=== PATIENT | female | born 1950 | race Caucasian/White ===

== ENCOUNTER → 2016-12-19 | Outpatient (CLI) | payer OTHER | END | disposition home or self-care (01) | LOC: LAB.O 08:20 | PROVIDERS: ATTEND Family Medicine | DX: Z79.899 Other long term (current) drug therapy (principal); M25.50 Pain in unspecified joint; E78.00 Pure hypercholesterolemia, unspecified; M05.9 Rheumatoid arthritis with rheumatoid factor, unspecified ==

== ENCOUNTER → 2017-04-30 | Outpatient (CLI) | payer OTHER | END | disposition home or self-care (01) | LOC: GMAL 11:16 | PROVIDERS: ATTEND Family Medicine | DX: M06.9 Rheumatoid arthritis, unspecified (principal) ==

== ENCOUNTER → 2017-06-08 | Outpatient (CLI) | payer OTHER | LOC: GMAL 10:31 | PROVIDERS: ATTEND Family Medicine | DX: D51.3 Other dietary vitamin B12 deficiency anemia (principal) ==

== ENCOUNTER → 2017-08-06 | Outpatient (CLI) | payer OTHER | LOC: GMAL 14:28 | PROVIDERS: ATTEND Family Medicine | DX: E03.8 Other specified hypothyroidism (principal); R94.5 Abnormal results of liver function studies ==

== ENCOUNTER → 2017-08-10 | Outpatient (CLI) | payer OTHER ==
--- NOTE | 2017-08-13 07:27 | US ---
EXAM DESCRIPTION: Thyroid CLINICAL HISTORY: 67 years Female, THYROID NODULE COMPARISON: None. FINDINGS: The right thyroid lobe measures 4.2 x 2.0 x 1.3 cm. It contains a 1.6 cm predominantly solid isoechoic nodule in its mid region with a central cystic component. There is a thin hypoechoic halo associated with this nodule without internal calcification or peripheral hypervascularity. There is a second 1 cm solid isoechoic nodule in the mid/superior pole right thyroid lobe without hypoechoic halo, internal calcification or peripheral hypervascularity. The thyroid isthmus is not thickened, measuring 2 mm AP diameter. The left thyroid lobe measures 4.1 x 1.3 x 1.3 cm. It contains a 1.3 cm solid, slightly hypoechoic nodule in its inferior pole without hypoechoic halo. This nodule contains a few small microcalcifications without peripheral hypervascularity. There is a second 5 mm solid nodule mid/superior pole left thyroid lobe without internal calcification, hypoechoic halo or peripheral hypervascularity. IMPRESSION: Bilateral solid and solid/cystic thyroid nodules as detailed above. Based on ACR TIRADS scoring and size, the 1.3 cm nodule in the inferior pole of the left thyroid lobe is suspicious and ultrasound-guided biopsy of this nodule should be considered. Annual follow-up ultrasound for up to 5 years is also recommended to document continued stability. Electronically signed by: Theo Priest MD 08/13/2017 7:26 AM RELIEF DRILLER
== END ==
LOC: US 08:01
PROVIDERS: ATTEND Family Medicine
DX: E04.1 Nontoxic single thyroid nodule (principal)

== ENCOUNTER → 2017-09-03 | Outpatient (CLI) | payer OTHER | LOC: GMAL 14:52 | PROVIDERS: ATTEND Family Medicine | DX: E03.8 Other specified hypothyroidism (principal) ==

== ENCOUNTER → 2018-01-07 | Outpatient (CLI) | payer OTHER | LOC: GMAL 12:13 | PROVIDERS: ATTEND Family Medicine | DX: M06.9 Rheumatoid arthritis, unspecified (principal) ==

== ENCOUNTER → 2018-01-28 | Outpatient (CLI) | payer OTHER | LOC: GMAL 11:07 | PROVIDERS: ATTEND Family Medicine | DX: E03.8 Other specified hypothyroidism (principal); E55.9 Vitamin D deficiency, unspecified ==

== ENCOUNTER → 2018-04-04 | Outpatient (CLI) | payer OTHER ==
--- NOTE | 2018-04-05 11:54 | US ---
US THYROID CLINICAL STATEMENT: NONTOXIC SINGLE THYROID NODULE. No palpable mass. Prior thyroid biopsy. COMPARISON: Ultrasound thyroid 08/10/2017. FINDINGS: Size right thyroid lobe: 4.6 x 1.9 x 1.8 cm Size left thyroid lobe: 4.1 x 1.6 x 1.2 cm Size isthmus: 0.2 cm Estimated total number of nodules greater than or equal to 1 cm: 3 Nodule 1: Size: 1.8 x 1.3 x 0.1 cm. Slightly larger compared to the prior study. Location: Right Mid Composition: solid or almost completely solid: 2 points Echogenicity: hypoechoic: 2 points Shape: wider than tall: 0 points Margins: smooth: 0 points. Hypoechoic. Echogenic foci: None. ACR Total Points: 4; ACR TI-RADS risk category: TR4 - moderately suspicious nodule. Nodule 2: Size: 1.0 x 0.9 x 0.8 cm. Stable since the prior study. Location: Right Mid Composition: solid or almost completely solid: 2 points Echogenicity: hypoechoic: 2 points Shape: wider than tall: 0 points Margins: smooth: 0 points. Hypoechoic. Echogenic foci: none: 0 points ACR Total Points: 4; ACR TI-RADS risk category: TR4 - moderately suspicious nodule. Nodule 3: Size: 0.5 x 0.4 x 0.3 cm. Stable since the prior study. Location: Left Lower Composition: spongiform: 0 points Echogenicity: hypoechoic: 2 points Shape: wider than tall: 0 points Margins: smooth: 0 points Echogenic foci: none: 0 points ACR Total Points: 2; ACR TI-RADS risk category: TR2 - nonsuspicious nodule. Nodule 4: Size: 1.2 x 1.1 x 0.9 cm. Stable size since the prior study. Location: Left Lower Composition: solid or almost completely solid: 2 points Echogenicity: hypoechoic: 2 points Shape: wider than tall: 0 points Margins: smooth: 0 points. Echogenic. Echogenic foci: peripheral calcifications: 2 points ACR Total Points: 4; ACR TI-RADS risk category: TR4 - moderately suspicious nodule. The soft tissues around the thyroid gland show no evidence of distinct solid mass or cyst, large calcifications or parenchymal edema, or abnormal vascularity. Overlying skin was unremarkable. IMPRESSION: 1. Nodule 1: ACR TI-RADS 2017 Category 4. Slightly larger compared to the prior study July 2017. Recommend: Ultrasound-guided fine needle aspiration. Please refer to ACR TI-RADS 2017 recommendations below.* 2. Nodule 2: ACR TI-RADS 2017 Category 4. Stable size compared to the prior study. Recommend: Follow-up ultrasound in 1 year. 3. Nodule 3: ACR TI-RADS 2017 Category 2. Stable since prior study. Recommend: No further follow-up. 4. Nodule 4: ACR TI-RADS 2017 Category 4. Stable size compared to prior study. Recommend: Follow-up ultrasound in 1 year. Soft tissues around the thyroid gland are unremarkable. *ACR TI-RADS 2017 Recommendations: TR1: No FNA or follow up TR2: No FNA or follow up TR3: FNA if >/= 2.5 cm, follow up if 1.5 - 2.4 cm in 1, 3, and 5 years TR4: FNA if >/= 1.5 cm, follow up if 1.0 - 1.4 cm in 1, 2, 3, and 5 years TR5: FNA if >/= 1.0 cm, follow up if 0.5 - 0.9 cm every year for 5 years ACR TI-RADS recommends that no more than two nodules with the highest ACR TI-RADS total point should be biopsied and no more than four nodules should be followed. Electronically signed by: Charan Shaver MD 04/05/2018 11:52 AM CDT
== END ==
LOC: US 16:09
DX: E04.1 Nontoxic single thyroid nodule (principal)

== ENCOUNTER 2018-04-20 07:40 | Emergency (ER) | payer OTHER ==
[2018-04-20] MEDS ORDERED: ONDANSETRON INJ 4 MG/2 ML VIAL IV ONE (08:03)
[2018-04-20] MEDS ORDERED: fentaNYL CITRATE INJ 50 MCG/ML AMP IV ONE ×2 (08:03→08:22)
--- NOTE | 2018-04-20 08:23 | ED.PDOC ---
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 C/O PAIN AND DECREASED ROM TO L SHOULDER. DENIES OTHER INJURIES. Severity: moderate Improving Factors: immobilization Worsening Factors: movement Allergies/Adverse Reactions: Allergies NO KNOWN ALLERGY Allergy (Unverified 11/27/12 09:14) Home Medications: Ambulatory Orders Acetaminophen W/ Codeine [Tylenol W/ CODEINE #3] 1 ea PO Q6HR PRN #24 04/20/18 Metformin HCl 850 mg PO DAILY 04/20/18 Review of Systems - Review of Systems Constitutional: States: no symptoms reported EENTM: States: no symptoms reported Respiratory: Denies: short of breath, wheezing Cardiology: States: no symptoms reported. Denies: chest pain Gastrointestinal/Abdominal: Denies: nausea, vomiting Genitourinary: States: no symptoms reported Musculoskeletal: States: other - PAIN AND DEFORMITY L SHOULDER . Denies: back pain, neck pain Skin: States: no symptoms reported Neurological: Denies: numbness, paresthesia Endocrine: States: no symptoms reported Hematologic/Lymphatic: States: no symptoms reported Past Medical History (General) - Patient Medical History Hx Stroke: No Hx Congestive Heart Failure: No Hx Diabetes: Yes Hx MRSA: No - Vaccination History Hx Influenza Vaccination: Yes - 2016 Hx Pneumococcal Vaccination: Yes - Social History Hx Tobacco Use: No Hx Alcohol Use: No Family Medical History - Family History Mother Family History: No Known Living Status: Physical Exam - Physical Exam General Appearance: Alert, No apparent distress Eye Exam: bilateral normal Ears, Nose, Throat: normal ENT inspection Neck: non-tender, full range of motion, supple Respiratory: lungs clear, normal breath sounds Cardiovascular/Chest: normal peripheral pulses, regular rate, rhythm, no murmur Gastrointestinal/Abdominal: non tender, soft, no organomegaly Back Exam: no vertebral tenderness Extremity: other - DEFORMITY OF L SHOULDER, NO CREPITUS, NO SWELLING. NVI Neurologic: no motor/sensory deficits, alert, normal mood/affect Skin Exam: normal color, warm/dry Lymphatic: no adenopathy Progress - EKG/XRAY/CT XRAY: SHOULDER 1: ANT DISLOCATION NO FX. SHOULDER 2: SUCCESSFUL REDUCTION Procedures - Joint Reduction left shoulder Conscious Sedation: Yes Pre-Procedure NV Exam: Yes - NVI PRE AND POST REDUCTION Post Joint Reduction Film: joint reduced - Additional Procedures Progress: CONCIOUS SEDATION: LAST PO SMALL CANDYBAR AND WATER THIS AM. LAST FULL PO LAST PM REACTION TO ANESTH: NONE MALLAMPATI 2 ASA 2 PROPOFOL 55MG NO RESP SUPPORT, VSS THROUGHOUT RECOVERY COMPLETE Departure - Departure Clinical Impression: Dislocation, shoulder, anterior Qualifiers: Encounter type: initial encounter Laterality: left Qualified Code(s): S43.015A - Anterior dislocation of left humerus, initial encounter Time of Disposition: 09:03 Disposition: Discharge to Home or Self Care Condition: Excellent Departure Forms: ED Discharge - Pt. Copy, Patient Portal Self Enrollment Instructions: Shoulder Dislocation (DC) Referrals: Cosme Milan III, MD [Primary Care Provider] - 1-2 Weeks Cesar De La Rosa MD [Active Staff] - 1-2 Weeks Prescriptions: Acetaminophen W/ Codeine [Tylenol W/ CODEINE #3] 1 ea PO Q6HR PRN #24 PRN Reason: Pain Home Medications: Ambulatory Orders Acetaminophen W/ Codeine [Tylenol W/ CODEINE #3] 1 ea PO Q6HR PRN #24 04/20/18 Metformin HCl 850 mg PO DAILY 04/20/18
--- NOTE | 2018-04-20 08:26 | RAD ---
PROCEDURE: Shoulder,Left 2 or More Views Clinical History: deformity after a fall, pain Comparison: None . Technique: Two views of the left shoulder were done. Findings: There is anterior subcoracoid dislocation of the left shoulder joint The adjacent acromioclavicular joint shows mild degenerative change. The acromiohumeral distance is well-maintained . There is no evidence of rotator cuff calcific tendinitis. The visualized adjacent ribs do not show any evidence of acute bony trauma. Limited evaluation of the adjacent clavicle, scapula and the acromioclavicular joint does not show any evidence of acute bony trauma. The visualized lung richards are radiographically unremarkable. The adjacent soft tissues are radiographically unremarkable. There is no visualization of any radiopaque foreign bodies in the soft tissues. Impression: There is anterior subcoracoid dislocation of the left shoulder joint . Electronically signed by: Jai Clay MD 04/20/2018 8:24 AM CDT Workstation: [id number]
[2018-04-20] MEDS ORDERED: PROPOFOL 200 MG/20 ML VIAL IV ONE (08:28)
--- NOTE | 2018-04-20 08:50 | RAD ---
PROCEDURE: Shoulder,Left 1 View Clinical History: DISLOCATION Comparison: Prior x-ray of the left shoulder done on the same day . Technique: Single lateral view of the left shoulder joint was done Findings: Note is again made of anterior subcoracoid dislocation of the proximal left humerus Impression: Note is again made of anterior subcoracoid dislocation of the proximal left humerus . Electronically signed by: Jai Clay MD 04/20/2018 8:49 AM CDT Workstation: [id number]
--- NOTE | 2018-04-20 09:00 | RAD ---
PROCEDURE: Shoulder,Left 1 View Clinical History: Post reduction Comparison: Prereduction study of the left shoulder done on the same day . Technique: One frontal projection of the left shoulder joint was done Findings: There is interval successful reduction of the previously noted anterior subcoracoid dislocation of the left shoulder joint. Mild degenerative change in the left AC joint is again noted Impression: There is interval successful reduction of the previously noted anterior subcoracoid dislocation of the left shoulder joint. . Electronically signed by: Jai Clay MD 04/20/2018 8:59 AM CDT Workstation: [id number]
[2018-04-20 09:01] VITALS: TEMP 97.5
[2018-04-20 10:04] VITALS: BP 114/74; O2SAT 97
== END 2018-04-20 09:28 | disposition home or self-care (01) ==
LOC: ER 07:40
DX: S43.015A Anterior dislocation of left humerus, initial encounter (principal); E11.9 Type 2 diabetes mellitus without complications; W01.0XXA Fall on same level from slipping, tripping and stumbling without subsequent striking against object, initial encounter; Y92.000 Kitchen of unspecified non-institutional (private) residence as the place of occurrence of the external cause
CPT/HCPCS: 73020; 73030; 94760; 94770; 99156; J2405; J3010; J3490

== ENCOUNTER → 2018-05-07 | Outpatient (CLI) | payer OTHER ==
--- NOTE | 2018-05-07 15:39 | CT ---
EXAM DESCRIPTION: Soft Tissue Neck w/Contrast: Computed Tomography CLINICAL HISTORY: 68 years Female, MASS,LUMP COMPARISON: None. TECHNIQUE: Spiral, axial 2.5 mm scans through the neck soft tissues after infusion of IV contrast. Sagittal and coronal 2 x 2 mm reconstructions. No adverse reactions. Total Exam DLP: 356.25 mGy-cm. This exam was performed according to our departmental CT dose-optimization program which includes automated exposure control, adjustment of the mA and/or kV according to patient size and/or use of iterative reconstruction technique; to reduce radiation dose to as low as reasonably achievable (ALARA). FINDINGS: The anterior orbits, facial structures, anterior maxillary antra are not included on the study. Skin marker overlying the left parotid gland. Normal size and enhancement. No prominent calcifications. No abnormalities in the adipose tissue. Where the superior posterior aspect of the parotid gland is abutting the anterior wall of the external auditory canal, calcification is noted bilaterally and symmetric. Sublingual glands are partially obscured by the morning artifact from dental hardware in the mandible. Small nodes in the bilateral parapharyngeal space, carotid spaces, and paracervical spaces. Normal size and enhancement of the submandibular glands and left parotid gland. Included subcutaneous adipose tissue is negative. No effacement or displacement or mass effect on the included airway from the nasopharynx to the mid trachea. Heterogeneous enhancement with partially enhancing nodule in the right lobe of the thyroid gland. Nodule is less than 1.5 cm diameter. Included mastoid air cells are negative. Included ethmoid and sphenoid air cells are negative. TMJ symmetric bilaterally. Internal auditory structures bilaterally symmetric with no gross abnormalities. No significant abnormalities in the enhancing the [place] in the base of the skull. Right vertebral artery is dominant compared to the left. No scalp abnormalities. Included lung richards are negative with minimal apical pleural thickening bilaterally. Cervical spondylosis C5-6 minimal narrowing of the left neural foramen. IMPRESSION: 1. No soft tissue mass or abnormal contrast enhancement at the location of the skin marker overlying the left parotid gland. 2. No soft tissue mass or abnormal enhancement elsewhere in the neck. 3. Minimal spondylosis at the C5-6 level of the spine. Electronically signed by: Charan Shaver MD 05/07/2018 3:37 PM WATER TREATMENT SPECIALIST
== END ==
LOC: CT 08:08
PROVIDERS: ATTEND Otolaryngology
DX: E04.1 Nontoxic single thyroid nodule (principal); R22.1 Localized swelling, mass and lump, neck; M47.892 Other spondylosis, cervical region

== ENCOUNTER → 2018-05-08 | Outpatient (CLI) | payer OTHER | LOC: GMAL 12:16 | PROVIDERS: ATTEND Family Medicine | DX: M06.9 Rheumatoid arthritis, unspecified (principal) ==

== ENCOUNTER → 2018-06-03 | Outpatient (CLI) | payer OTHER | LOC: GMAL 11:02 | PROVIDERS: ATTEND Family Medicine | DX: E03.8 Other specified hypothyroidism (principal); E55.9 Vitamin D deficiency, unspecified ==

== ENCOUNTER → 2018-09-09 | Outpatient (CLI) | payer OTHER | LOC: GMAL 10:40 | PROVIDERS: ATTEND Family Medicine | DX: M05.9 Rheumatoid arthritis with rheumatoid factor, unspecified (principal) ==

== ENCOUNTER → 2018-12-10 | Outpatient (CLI) | payer OTHER ==
--- NOTE | 2018-12-17 16:37 | MAM ---
EXAM DESCRIPTION: 3D Screening BILATERAL : Digital Mammography. CLINICAL HISTORY: 68 years Female SCREEN . No complaints. No personal history of breast cancer. Mother with breast cancer. Childbirth. Postmenopausal 15+ years. No HRT. Prior benign left biopsy. Lifetime risk of developing breast cancer (Tyrer-Cuzick model)(%): 15.1. COMPARISON: Bilateral 2-D digital screening mammography 03/20/2016. TECHNIQUE: Bilateral CC and MLO projection full-field images, digital tomosynthesis mammographic technique. Bilateral digital 2-D full-field MLO images. CAD not available for tomosynthesis or 2-D images. FINDINGS: The breast parenchymal density pattern is: Heterogeneously dense breast tissue, which may obscure small masses. No skin thickening or nipple retraction. Bilateral small solitary microcalcifications. Posterior intramammary lymph nodes on the right are stable. Bilateral small solitary microcalcifications. Architectural distortion in the 12:00 to 1:00 position of the middle third of the left breast most likely related to prior biopsy. Stable. No new focal, stellate mass or density, focal asymmetry , and no suspicious microcalcifications bilaterally. Stable mammograms compared to prior study. Taking into account, differences in mammographic technique. IMPRESSION: Benign exam. BIRAD CATEGORY: 2 BENIGN FINDINGS. RECOMMENDATIONS: FOLLOW UP: Routine digital bilateral mammographic screening, one year interval from November 2018. Written communication explaining the IMPRESSION and follow-up, will be mailed to the patient and referring health care provider. According to the [employer], yearly mammograms are recommended starting at age 40 and continuing as long as a woman is in good health. Any breast change noted on a breast self-exam should be reported promptly to the patient's healthcare provider. Breast MRI is recommended for women with an approximately 20-25% or greater lifetime risk of breast cancer, including women with a strong family history of breast or ovarian cancer and women who have been treated for Hodgkin's disease. A negative mammographic report should not delay tissue diagnosis in patients with significant clinical history or physical findings. Extremely dense breast tissue limits the sensitivity of digital mammography. Electronically signed by: Charan Shaver MD 12/17/2018 4:35 PM CDT
== END ==
LOC: GMAL 12:29
PROVIDERS: ATTEND Family Medicine
DX: Z12.31 Encounter for screening mammogram for malignant neoplasm of breast (principal); D51.3 Other dietary vitamin B12 deficiency anemia; E11.9 Type 2 diabetes mellitus without complications; E78.00 Pure hypercholesterolemia, unspecified; Z79.899 Other long term (current) drug therapy

== ENCOUNTER → 2018-12-16 | Outpatient (CLI) | payer OTHER ==
--- NOTE | 2018-12-16 09:19 | CT ---
EXAM DESCRIPTION: Abdoment/Pelvis w/o Contrast CLINICAL HISTORY: 68 years, Female, Flank Pain, Kidney Stone COMPARISON: Previous CT abdomen and pelvis February 22, 2014 TECHNIQUE: CT of the abdomen and pelvis is performed according to our non contrast protocol. FINDINGS: The lung bases are clear. Mildly decreased density of the liver consistent with hepatic steatosis with sparing near the gallbladder. Liver, spleen, and pancreas are otherwise unremarkable. Adrenal glands appear normal. Bilateral renal stones are present. Largest stone in the lower calyx of the left kidney measures 1.9 cm in greatest dimension. Multiple additional 2 mm calculi in the upper mid and lower left kidney without hydronephrosis. (Previously a ureteral stone was present on the left and there was left hydronephrosis. Left ureteral stone has since passed or been removed.) Largest calculus in the right kidney is in the renal pelvis and measures 1.2 cm. (Previously large right renal pelvic stone measured 2.2 cm.) A few additional 1 to 2 mm calculi in the mid to lower right kidney. There is dilatation of the intrarenal collecting system on the right with prominent caliber of the proximal right ureter. No stone is visualized along the course of the right ureter however. Findings could indicate previous passage of a ureteral calculus. No stones in the left ureter or evidence of left hydronephrosis. Small bowel loops appear normal in caliber with normal wall thickness. There is no lymphadenopathy, inflammation, or free fluid observed. In the pelvis, the appendix is normal. No inflammation around the cecum or terminal ileum or sigmoid colon. No stones in the distal ureters or bladder. Rectal wall thickness is normal for degree of distention. No free fluid or mass in the pelvis. Uterus appears normal. No ovarian enlargement. No inguinal or lower pelvic adenopathy. Coronal and sagittal reformatted images confirm the findings. On the sagittal images, the left lower calyceal calculus measures 1 x 1.9 cm. Bilateral L5 spondylolysis is present without spondylolisthesis. Spleen is prominent 12.5 cm in length. IMPRESSION: Prominence of the intrarenal collecting system on the right with large right renal pelvic stone 1.2 cm. Largest calculus in the left kidney measures 1.9 cm. No ureteral stones are identified on either side. This exam was performed according to our departmental dose-optimization program, which includes automated exposure control, adjustment of the mA and/or kV according to patient size and/or use of iterative reconstruction technique. Total DLP equals 699.8 mGycm. Electronically signed by: Aakash Knight MD 12/16/2018 9:17 AM CDT
== END ==
LOC: CT 08:25
PROVIDERS: ATTEND Urology
DX: N20.0 Calculus of kidney (principal)

== ENCOUNTER → 2019-01-15 | Outpatient (CLI) | payer OTHER | LOC: GMAL 10:54 | PROVIDERS: ATTEND Family Medicine | DX: M05.9 Rheumatoid arthritis with rheumatoid factor, unspecified (principal) ==

== ENCOUNTER 2019-01-16 17:23 | Emergency (ER) | payer OTHER ==
[2019-01-16] MEDS: ONDANSETRON ODT 8 MG TAB SL ONE (17:35)
[2019-01-16] MEDS: KETOROLAC TROMETHAMINE INJ 30 MG/ML VIAL IM ONE (17:35)
[2019-01-16 18:09] VITALS: BP 151/87; TEMP 97.8; O2SAT 98
--- NOTE | 2019-01-16 18:30 | ED.PDOC ---
History of Present Illness - General Chief Complaint: Abdominal Pain Time Seen by Provider: 01/16/19 17:25 Source: patient Exam Limitations: no limitations - History of Present Illness Initial Comments: the patient is 68-year-old female presenting to emergency room secondary to left flank painand nausea and vomiting for the last 3 or 4 hours. Earlier in the day she had lithotripsy performed with Dr. Hoang in [place]. After the pain medications and anesthesia for off she started having some pain and nausea and vomiting.she took some [place] Phenergan which did not seem to help. She took some of her oral pain medications which she thinks she threw up. No fevers. No new issues otherwise. Timing/Duration: 4-6 hours Severity: severe Improving Factors: nothing Worsening Factors: nothing Associated Symptoms: malaise, nausea/vomiting, weakness Allergies/Adverse Reactions: Allergies NO KNOWN ALLERGY Allergy (Unverified 11/27/12 09:14) Home Medications: Ambulatory Orders Acetaminophen W/ Codeine [Tylenol W/ CODEINE #3] 1 ea PO Q6HR PRN #24 04/20/18 Metformin HCl [Metformin Hydrochloride] 850 mg PO DAILY 04/20/18 Ondansetron [Ondansetron Odt] 4 mg PO Q8HR PRN #5 tab 01/16/19 Review of Systems - Review of Systems Constitutional: States: no symptoms reported EENTM: States: no symptoms reported Respiratory: States: no symptoms reported Cardiology: States: no symptoms reported Gastrointestinal/Abdominal: States: abdominal pain, nausea, vomiting Genitourinary: States: no symptoms reported Musculoskeletal: States: back pain Skin: States: no symptoms reported Neurological: States: no symptoms reported Endocrine: States: no symptoms reported All other Systems: No Change from Baseline Past Medical History (General) - Patient Medical History Hx Stroke: No Hx Congestive Heart Failure: No Hx Diabetes: Yes Hx MRSA: No Surgical History: other - Vaccination History Hx Influenza Vaccination: Yes - 2017 Hx Pneumococcal Vaccination: Yes - Social History Hx Tobacco Use: No Hx Alcohol Use: No Family Medical History - Family History Mother Family History: No Known Living Status: Physical Exam - Physical Exam General Appearance: Alert, Obvious distress Eye Exam: bilateral normal Ears, Nose, Throat: hearing grossly normal, normal pharynx Neck: full range of motion Respiratory: no respiratory distress, no accessory muscle use Cardiovascular/Chest: normal peripheral pulses, no edema Peripheral Pulses: dorsalis pedis,right: 2+, dorsalis pedis,left: 2+ Gastrointestinal/Abdominal: non tender, soft Rectal Exam: deferred Back Exam: no vertebral tenderness Extremity: normal range of motion, non-tender, no pedal edema, normal capillary refill Neurologic: chief privacy officer II-XII nml as tested, alert, oriented x 3 Skin Exam: normal color Comments: Vital Signs - 24 hr 01/16/19 18:02 Temperature 97.8 F Pulse Rate [ 53 L left brachial] Respiratory 20 Rate Blood Pressure 151/87 [left brachial] O2 Sat by Pulse 98 Oximetry Progress - Progress Progress: 01/16/19 18:29 the patient is a 68-year-old female presents to emergency room secondary to uncontrolled pain and nausea and vomiting after having had lithotripsy performed earlier in the day. The patient has responded well here to a dose of Toradol and Zofran. She will be written for Zofran for as needed use for any nausea or vomiting. She can use the prescriptions already written by her urologist as needed as well. She needs to keep herself well-hydrated. She will likely be sore for a few days. She can additionally take 2 Aleve twice daily for the next few days which may also help. ER warnings were given for any significant worsening. Departure - Departure Clinical Impression: Postoperative pain, Postoperative nausea and vomiting Disposition: Discharge to Home or Self Care Condition: Fair Departure Forms: ED Discharge - Pt. Copy, Patient Portal Self Enrollment Diet: bland diet Activity: increase activity as tolerated Referrals: Cosme Milan III, MD [Primary Care Provider] - 1-2 Weeks Prescriptions: Ondansetron [Ondansetron Odt] 4 mg PO Q8HR PRN #5 tab PRN Reason: Nausea/Vomiting Home Medications: Ambulatory Orders Acetaminophen W/ Codeine [Tylenol W/ CODEINE #3] 1 ea PO Q6HR PRN #24 04/20/18 Metformin HCl [Metformin Hydrochloride] 850 mg PO DAILY 04/20/18 Ondansetron [Ondansetron Odt] 4 mg PO Q8HR PRN #5 tab 01/16/19 Additional Instructions: the patient is a 68-year-old female presents to emergency room secondary to uncontrolled pain and nausea and vomiting after having had lithotripsy performed earlier in the day. The patient has responded well here to a dose of Toradol and Zofran. She will be written for Zofran for as needed use for any nausea or vomiting. She can use the prescriptions already written by her urologist as needed as well. She needs to keep herself well-hydrated. She will likely be sore for a few days. She can additionally take 2 Aleve twice daily for the next few days which may also help. ER warnings were given for any significant worsening.
== END 2019-01-16 18:43 | disposition home or self-care (01) ==
LOC: ER 17:23
DX: G89.18 Other acute postprocedural pain (principal); R10.9 Unspecified abdominal pain; R11.2 Nausea with vomiting, unspecified; E11.9 Type 2 diabetes mellitus without complications
CPT/HCPCS: 36416; 82948; J1885

== ENCOUNTER → 2019-05-15 | Outpatient (CLI) | payer OTHER | LOC: GMAL 10:28 | PROVIDERS: ATTEND Family Medicine | DX: M05.9 Rheumatoid arthritis with rheumatoid factor, unspecified (principal) ==

== ENCOUNTER → 2019-09-19 | Outpatient (CLI) | payer OTHER, SELFPAY | LOC: GMAL 12:11 | PROVIDERS: ATTEND Family Medicine | DX: M05.9 Rheumatoid arthritis with rheumatoid factor, unspecified (principal) ==

== ENCOUNTER → 2020-02-03 | Outpatient (CLI) | payer OTHER | LOC: GMAL 11:35 | PROVIDERS: ATTEND Family Medicine | DX: M05.9 Rheumatoid arthritis with rheumatoid factor, unspecified (principal) ==

== ENCOUNTER → 2020-05-24 | Outpatient (CLI) | payer OTHER | LOC: GMAL 15:14 | PROVIDERS: ATTEND Family Medicine | DX: M05.9 Rheumatoid arthritis with rheumatoid factor, unspecified (principal) ==